=== PATIENT | female | born 1975 | race Caucasian/White ===

== ENCOUNTER → 2020-10-30 | Outpatient (CLI) | payer BC ==
--- NOTE | 2020-10-30 08:00 | US ---
EXAMINATION TYPE: US abdomen complete DATE OF EXAM: 10/30/2020 COMPARISON: NONE CLINICAL HISTORY: 44-year-old female K43.9 Ventral hernia w/o obstruction. Pain. TECHNIQUE: Multiple sonographic images of the abdomen are obtained. FINDINGS: EXAM MEASUREMENTS: Liver Length: 14.3 cm Gallbladder Wall: .2 cm CBD: .3 cm Spleen: 10.3 cm Right Kidney: 9.7 x 4.0 x 5.2 cm Left Kidney: 9.2 x 5.0 x 4.5 cm Pancreas: wnl Liver: wnl Gallbladder: wnl Evidence for sonographic Mack's sign: no CBD: wnl Spleen: wnl Right Kidney: wnl Left Kidney: wnl Upper IVC: wnl Abd Aorta: wnl Additional targeted scanning left upper quadrant at the area of the patient's pain. No discrete abdom inal wall hernia is identified here. IMPRESSION: 1. Unremarkable sonographic examination of the abdomen. 2. Additional targeted scanning superficial tissues of the left upper quadrant at the area of patient 's pain. No discrete abdominal wall hernia is identified here.
== END | disposition home or self-care (01) ==
LOC: RADUSWWP 07:02
PROVIDERS: ATTEND Nurse Practitioner
DX: Z03.89 Encounter for observation for other suspected diseases and conditions ruled out (principal)
CPT/HCPCS: 76700

== ENCOUNTER → 2021-09-04 | Outpatient (CLI) | payer BC ==
--- NOTE | 2021-09-05 07:46 | MM ---
Reason for Exam: Screening (asymptomatic). Baseline mammogram. Patient History: Menarche at age 15. First Full-Term at age 27. Premenopausal. Patient has history of breast feeding. Paternal grandmother had breast cancer at or over age 50. Last menstrual period: 08/24/2021 Risk Values: Etta 5 year model risk: 0.8%. NCI Lifetime model risk: 9.8%. Prior Study Comparison: Patient's first Mammogram. No prior studies available for comparison. Tissue Density: The breast tissue is heterogeneously dense. This may lower the sensitivity of mammography. Findings: Analyzed By CAD. There is no suspicious group of microcalcifications or new suspicious mass in either breast. Overall Assessment: Negative, BI-RAD 1 Management: Screening Mammogram of both breasts in 1 year. A clinical breast exam by your physician is recommended on an annual basis and results should be correlated with mammographic findings. Electronically signed and approved by: Brady Garrett M.D. Radiologis
== END | disposition home or self-care (01) ==
LOC: RADMAMWWP 08:30
PROVIDERS: ATTEND Obstetrics & Gynecology
DX: Z12.31 Encounter for screening mammogram for malignant neoplasm of breast (principal); Z80.3 Family history of malignant neoplasm of breast
CPT/HCPCS: 77067

== ENCOUNTER → 2022-02-20 | Outpatient (CLI) | payer BC ==
--- NOTE | 2022-02-21 09:18 | XR ---
EXAMINATION TYPE: XR chest 2V DATE OF EXAM: 02/20/2022 COMPARISON: NONE TECHNIQUE: PA and lateral views submitted. HISTORY: Pain FINDINGS: The lungs are clear and there is no pneumothorax, pleural effusion, or focal pneumonia. Heart size normal. Osseous structures intact. No overt failure. Hyperinflation suggests COPD or asthma. Hypertro phic changes of the spine. IMPRESSION: 1. Correlate for asthma or COPD..
== END | disposition home or self-care (01) ==
LOC: RADXRMAIN 16:14
PROVIDERS: ATTEND Family Medicine
DX: R07.81 Pleurodynia (principal)
CPT/HCPCS: 71046

== ENCOUNTER 2022-06-28 14:18 | Day surgery (SDC) | payer BC ==
[2022-06-26 11:32] VITALS: BMI 22.8
[~2022-06-28 14:18] MED LIST: LACTATED RINGERS 1,000 ML IV SCH; LIDOCAINE 1% (10MG/ML) FOR IV START INTRADERMA PRN
[2022-06-28] MEDS ORDERED: PROPOFOL 10 MG/ML 20 ML VIAL IV ONE (14:20)
[2022-06-28 14:39] VITALS: RESP 16; TEMP 97
[2022-06-28] MEDS ORDERED: LIDOCAINE 1% (10MG/ML) FOR IV START SQ ONE (14:39)
--- NOTE | 2022-06-28 15:11 | P.PCN ---
Date of Procedure: 06/28/22 Procedure(s) Performed: BRIEF HISTORY: Patient is a 46-year-old pleasant white female scheduled for an elective colonoscopy as a part of screening for colon cancer and family history of colon cancer. Her father was diagnosed with colon cancer at age 65. PROCEDURE PERFORMED: Colonoscopy. PREOPERATIVE DIAGNOSIS: Screening for colon cancer and family history of colon cancer. IV sedation per Anesthesia. PROCEDURE: After informed consent was obtained, the patient, was brought into the endoscopy unit. IV sedation was administered by Anesthesia under continuous monitoring. Digital rectal examination was normal. Initially the Olympus CF-160 flexible video colonoscope was then inserted in the rectum, gradually advanced into the cecum without any difficulty. Careful examination was performed as the scope was gradually being withdrawn. Ileocecal valve and the appendiceal orifice were visualized and appeared normal. Prep was excellent. Mucosa of the cecum, ascending colon, transverse colon, descending colon, sigmoid colon, and rectum appeared normal. Retroflexion was performed in the rectum and no lesions were seen. The patient tolerated the procedure well. IMPRESSION: Normal-appearing colon from rectum to cecum no evidence of colorectal neoplasia . RECOMMENDATIONS: Findings of this examination were discussed with the patient well as her family. She was advised to have a repeat screening colonoscopy in 5 years because of the family history of colon cancer.
[2022-06-28] MEDS ORDERED: IV FLUID CONTINUATION 1,000 ML IV ONE (15:12)
[2022-06-28 15:55] VITALS: BP 103/67; PULSE 60
== END 2022-06-28 16:08 | disposition home or self-care (01) ==
LOC: ORWHC2ENDO 14:18
PROVIDERS: ATTEND Internal Medicine Gastroenterology
DX: Z12.11 Encounter for screening for malignant neoplasm of colon (principal); E07.9 Disorder of thyroid, unspecified; K91.0 Vomiting following gastrointestinal surgery; Z79.890 Hormone replacement therapy; Z79.899 Other long term (current) drug therapy; Z88.5 Allergy status to narcotic agent; Z80.0 Family history of malignant neoplasm of digestive organs; T75.3XXD Motion sickness, subsequent encounter; Z98.890 Other specified postprocedural states
CPT/HCPCS: 81025; 45378; J2704